=== PATIENT | male | born 1945 | race Caucasian/White ===

== ENCOUNTER 2017-07-19 13:37 | Emergency (ER) | payer MEDICARE ==
[~2017-07-19] VITALS: Ht 177.8 cm; Wt 86.2 kg
--- NOTE | 2017-07-19 14:20 | PHYS DOC ---
Past History Additional Past Medical Histor: benign hypertrophic prostate Smoking: Non-smoker Adult General Chief Complaint Chief Complaint: URINARY RETENTION HPI HPI 71-year-old male patient with history of enlarged prostate complaining of urinary retention since this morning. Patient states he had complete times of small amount of urine output with lower abdominal pressure feeling without nausea and vomiting and diarrhea and constipation and fever and chills. Patient state he supposed to take Flomax but didn't take any and today he borrowed one from his friend about an hour prior to arrival to ER. Review of Systems Review of Systems Constitutional: Denies fever or chills [] Eyes: Denies change in visual acuity, redness, or eye pain [] HENT: Denies nasal congestion or sore throat [] Respiratory: Denies cough or shortness of breath [] Cardiovascular: No additional information not addressed in HPI [] GI: Reports abdominal pain, denies nausea, vomiting, bloody stools or diarrhea [ ] : Denies dysuria or hematuria [] Musculoskeletal: Denies back pain or joint pain [] Integument: Denies rash or skin lesions [] Neurologic: Denies headache, focal weakness or sensory changes [] Endocrine: Denies polyuria or polydipsia [] All other systems were reviewed and found to be within normal limits, except as documented in this note. Allergies Allergies Allergies Coded Allergies Type Severity Reaction Last Updated Verified No Known Drug Allergies 07/19/17 No Physical Exam Physical Exam Constitutional: Well developed, well nourished, mild distress, non-toxic appearance. [] HENT: Normocephalic, atraumatic, bilateral external ears normal, oropharynx moist, no oral exudates, nose normal. [] Eyes: PERRLA, EOMI, conjunctiva normal, no discharge. [] Neck: Normal range of motion, no tenderness, supple, no stridor. [] Cardiovascular:Heart rate regular rhythm, no murmur [] Lungs & Thorax: Bilateral breath sounds clear to auscultation [] Abdomen: Bowel sounds normal, soft, no tenderness, no masses, no pulsatile masses. [] Skin: Warm, dry, no erythema, no rash. [] Back: No tenderness, no CVA tenderness. [] Extremities: No tenderness, no cyanosis, no clubbing, ROM intact, no edema. [] Neurologic: Alert and oriented X 3, normal motor function, normal sensory function, no focal deficits noted. [] Psychologic: Affect normal, judgement normal, mood normal. [] EKG EKG [] Radiology/Procedures Radiology/Procedures [] Course & Med Decision Making Course & Med Decision Making Pertinent Labs reviewed. (See chart for details) Evolution of patient in ER showed 71-year-old male patient with urinary retention since this morning. Patient states that the same problem 4 years ago and had drainage of urine by insertion of Krishna catheter. Bladder scan showed 980 mL of urine inside of the bladder. UA showed infection. Patient had insertion of Krishna catheter with gradual drainage of 1200 mL of nonbloody urine. Patient did not want to go home with Krishna catheter and wanted to go home without catheter. Patient instructed to increase the fluid intake and not taking pops frequently like his usual and follow up with on-call urology. Patient instructed to return to ER if not able to urinate. Dragon Disclaimer Dragon Disclaimer This electronic medical record was generated, in whole or in part, using a voice recognition dictation system. Departure Departure: Impression: Primary Impression: Urinary retention Additional Impression: UTI (urinary tract infection) Disposition: HOME, SELF-CARE (At 1517) Condition: IMPROVED Referrals: PCP,UNKNOWN (PCP) Patient Instructions: Urinary Retention, Acute, Male, Urinary Tract Infection Additional Instructions: Drink plenty of liquids Follow-up with your primary care physician in 3-5 days Return to ER if not getting better Follow-up with on-call urology Dr. Glynn , call [phone] to make an appointment in 2 or 3 days Scripts Ciprofloxacin Hcl (CIPRO) 250 Mg Tablet 1 TAB PO BID, #6 TAB Prov: ANETA REDDY MD 07/19/17 Tamsulosin Hcl (FLOMAX) 0.4 Mg Cap.er.24h 1 CAP PO DAILY, #30 CAP 11 Refills Prov: ANETA REDDY MD 07/19/17 Problem Qualifiers ANETA REDDY MD July 19, 2017 14:20
[2017-07-19 14:21] LABS: BILIRUBIN,URINE NEG (NEG); CLARITY,URINE HAZY; COLOR,URINE YELLOW; GLUCOSE,URINE NEG (NEG); NITRITE,URINE NEG (NEG); UROBILINOGEN,URINE 2 mg/dL (0.2 mg/dL)
[2017-07-19 15:15] VITALS: BP 150/82
[2017-07-19] MEDS ORDERED: TAMS0.4C97 PO (15:19)
[2017-07-19] MEDS ORDERED: CIPR250T30 PO (15:19)
== END 2017-07-19 15:24 | disposition home or self-care (01) ==
LOC: ER 13:37
DX: N39.0 Urinary tract infection, site not specified (principal); R33.9 Retention of urine, unspecified; N40.1 Benign prostatic hyperplasia with lower urinary tract symptoms
CPT/HCPCS: 51701; 81003; 99284-25

== ENCOUNTER 2017-08-07 07:24 | Emergency (ER) | payer MEDICARE ==
[~2017-08-07] VITALS: Ht 177.8 cm; Wt 86.2 kg
[~2017-08-07 07:24] MED LIST: CIPR250T30 PO; TAMS0.4C97 PO
[2017-08-07 07:33] VITALS: BP 154/90
[2017-08-07 08:43] LABS: CLARITY,URINE CLEAR; COLOR,URINE YELLOW; GLUCOSE,URINE NEG (NEG)
--- NOTE | 2017-08-07 08:43 | PHYS DOC ---
Past History Past Medical History: Other Additional Past Medical Histor: benign hypertrophic prostate Past Surgical History: No Surgical History Smoking: Non-smoker Alcohol Use: None Drug Use: None Adult General Chief Complaint Chief Complaint: URINARY RETENTION HPI HPI 71-year-old male presents with inability to urinate. The patient was feeling normal yesterday. He was urinating without difficulty. He started noticing having decreased flow overnight. When he woke up this morning he can tell that his bladder was full and he is unable to urinate. He had this happen about 1 month ago and came into the ED to have a catheter placed. He had a remove the same day. He had no more trouble over the last one month until this morning. He denies fever, chills, or other symptoms of illness. He is scheduled to see urology next week. Review of Systems Review of Systems Constitutional: Denies fever or chills [] Eyes: Denies change in visual acuity, redness, or eye pain [] HENT: Denies nasal congestion or sore throat [] Respiratory: Denies cough or shortness of breath [] Cardiovascular: No additional information not addressed in HPI [] GI: Denies abdominal pain, nausea, vomiting, bloody stools or diarrhea [] : Urinary retention[] Musculoskeletal: Denies back pain or joint pain [] Integument: Denies rash or skin lesions [] Neurologic: Denies headache, focal weakness or sensory changes [] Endocrine: Denies polyuria or polydipsia [] All other systems were reviewed and found to be within normal limits, except as documented in this note. Allergies Allergies Allergies Coded Allergies Type Severity Reaction Last Updated Verified No Known Drug Allergies 07/19/17 No Physical Exam Physical Exam Constitutional: Well developed, well nourished, no acute distress, non-toxic appearance. [] HENT: Normocephalic, atraumatic, bilateral external ears normal, oropharynx moist, no oral exudates, nose normal. [] Eyes: PERRLA, EOMI, conjunctiva normal, no discharge. [] Neck: Normal range of motion, no tenderness, supple, no stridor. [] Cardiovascular:Heart rate regular rhythm, no murmur [] Lungs & Thorax: Bilateral breath sounds clear to auscultation [] Abdomen: Bowel sounds normal, soft, no tenderness, no masses, no pulsatile masses. [] Skin: Warm, dry, no erythema, no rash. [] Back: No tenderness, no CVA tenderness. [] Extremities: No tenderness, no cyanosis, no clubbing, ROM intact, no edema. [] Neurologic: Alert and oriented X 3, normal motor function, normal sensory function, no focal deficits noted. [] Psychologic: Affect normal, judgement normal, mood normal. : external genitalia WNL, circumcised, no erythema or swelling, catheter in place, no blood or discharge, clear urine [] Current Patient Data Vital Signs Vital Signs Date Time Temp Pulse Resp B/P (MAP) Pulse Ox O2 Delivery O2 Flow Rate FiO2 08/07/17 07:33 97.9 81 20 Room Air EKG EKG [] Radiology/Procedures Radiology/Procedures [] Course & Med Decision Making Course & Med Decision Making Pertinent Labs and Imaging studies reviewed. (See chart for details) The patients urine is negative for infection. He had a total of 1200mL of output. The patient is refusing to leave the catheter in and has requested it be removed. This is how his retention was managed in the past and he thinks it will work this time. The modi was removed prior to discharge. [] Dragon Disclaimer Dragon Disclaimer This electronic medical record was generated, in whole or in part, using a voice recognition dictation system. Departure Departure: Referrals: PCP,GIO (PCP) MARY WANG DO Aug 07, 2017 08:43
[2017-08-07 08:44] LABS: BACTERIA,URINE 0 /HPF (0-FEW); BILIRUBIN,URINE NEG (NEG); NITRITE,URINE NEG (NEG); RBC,URINE RARE /HPF (0-2); UROBILINOGEN,URINE 1 mg/dL (0.2 mg/dL); WBC,URINE RARE /HPF (0-4)
== END 2017-08-07 08:58 | disposition home or self-care (01) ==
LOC: ER 07:24
DX: R33.9 Retention of urine, unspecified (principal)
CPT/HCPCS: 51701; 51702; 81001; 99284-25

== ENCOUNTER 2017-08-20 08:41 | Emergency (ER) | payer MEDICARE ==
[~2017-08-20] VITALS: Ht 177.8 cm; Wt 86.2 kg
[2017-08-20 08:49] VITALS: BP 154/90
[2017-08-20 09:15] LABS: BILIRUBIN,URINE NEG (NEG); CLARITY,URINE CLEAR; COLOR,URINE YELLOW; GLUCOSE,URINE NEG (NEG)
[2017-08-20 09:16] LABS: NITRITE,URINE NEG (NEG); UROBILINOGEN,URINE 0.2 mg/dL (0.2 mg/dL)
[2017-08-20] MEDS ORDERED: TAMS0.4C97 PO (09:24)
--- NOTE | 2017-08-20 09:25 | PHYS DOC ---
Past History Past Medical History: Other Additional Past Medical Histor: benign hypertrophic prostate Past Surgical History: No Surgical History Smoking: Non-smoker Alcohol Use: None Drug Use: None Adult General Chief Complaint Chief Complaint: URINARY RETENTION [facility] 71-year-old male patient with history of urinary retention state he was able to urinate like his usual last night since 5:30 this morning was not able to urinate like his usual and had decrease of urine output. Patient complaining of urinary D bleeding and lower abdominal pressure feeling. Patient had 3 episodes of urinary retention during the last 1 months and had appointment with urologist that was postponed to makes week. Patient refused to have Krishna catheter in place for home in his previous ER visit and this time. Review of Systems Review of Systems Constitutional: Denies fever or chills [] Eyes: Denies change in visual acuity, redness, or eye pain [] HENT: Denies nasal congestion or sore throat [] Respiratory: Denies cough or shortness of breath [] Cardiovascular: No additional information not addressed in HPI [] GI: Denies abdominal pain, nausea, vomiting, bloody stools or diarrhea [] : Reports urinary retention, denies dysuria or hematuria [] Musculoskeletal: Denies back pain or joint pain [] Integument: Denies rash or skin lesions [] Neurologic: Denies headache, focal weakness or sensory changes [] Endocrine: Denies polyuria or polydipsia [] All other systems were reviewed and found to be within normal limits, except as documented in this note. Allergies Allergies Allergies Coded Allergies Type Severity Reaction Last Updated Verified No Known Drug Allergies 07/19/17 No Physical Exam Physical Exam Constitutional: Well developed, well nourished, mild distress, non-toxic appearance. [] HENT: Normocephalic, atraumatic Eyes: PERRLA, EOMI, conjunctiva normal, no discharge. [] Neck: Normal range of motion, no tenderness, supple, no stridor. [] Cardiovascular:Heart rate regular rhythm, no murmur [] Lungs & Thorax: Bilateral breath sounds clear to auscultation [] Abdomen: Bowel sounds normal, soft, no tenderness, no masses, no pulsatile masses, suprapubic fullness [] Skin: Warm, dry, no erythema, no rash. [] Back: No tenderness, no CVA tenderness. [] Extremities: No tenderness, no cyanosis, no clubbing, ROM intact, no edema. [] Neurologic: Alert and oriented X 3, normal motor function, normal sensory function, no focal deficits noted. [] Psychologic: Affect normal, judgement normal, mood normal. [] EKG EKG [] Radiology/Procedures Radiology/Procedures [] Course & Med Decision Making Course & Med Decision Making Pertinent Labs reviewed. (See chart for details) Evaluation of patient in ER showed 71-year-old male patient with history of frequent urinary retention presented to ER with another episode of urinary retention. Patient had Krishna catheter placement with more than 800 mL of nonbloody urine drainage. Patient did not want to go home with catheter in place and states she has appointment with his urologist next week. UA did not show infection. Patient instructed to follow-up with his urologist and return to ER if not getting better. [] Dragon Disclaimer Dragon Disclaimer This electronic medical record was generated, in whole or in part, using a voice recognition dictation system. Departure Departure: Impression: Primary Impression: Urinary retention Disposition: HOME, SELF-CARE (At 0922) Condition: IMPROVED Referrals: PCP,NO (PCP) Patient Instructions: Urinary Retention, Acute, Male Additional Instructions: Drink plenty of liquids Follow-up with your urologist as a scheduled Return to ER if not getting better Scripts Tamsulosin Hcl (FLOMAX) 0.4 Mg Cap.er.24h 1 CAP PO DAILY, #30 CAP 11 Refills Prov: ANETA REDDY MD 08/20/17 ANETA REDDY MD Aug 20, 2017 09:25
== END 2017-08-20 09:37 | disposition home or self-care (01) ==
LOC: ER 08:41
DX: R33.9 Retention of urine, unspecified (principal)
CPT/HCPCS: 51701; 81003; 99283-25

== ENCOUNTER 2017-09-10 06:54 | Emergency (ER) | payer MEDICARE, OTHER ==
[~2017-09-10] VITALS: Ht 177.8 cm; Wt 86.2 kg
[2017-09-10 07:26] VITALS: BP 162/77
[2017-09-10 08:08] LABS: BACTERIA,URINE 0 /HPF (0-FEW); BILIRUBIN,URINE NEG (NEG); CLARITY,URINE HAZY; COLOR,URINE YELLOW; GLUCOSE,URINE NEG (NEG); NITRITE,URINE NEG (NEG); SQUAMOUS EPITHELIAL CELL,UR OCC /LPF; UROBILINOGEN,URINE 0.2 mg/dL (0.2 mg/dL); WBC,URINE RARE /HPF (0-4)
--- NOTE | 2017-09-10 11:19 | ED.ADGEN ---
Past History Past Medical History: Other Additional Past Medical Histor: benign hypertrophic prostate Past Surgical History: No Surgical History Smoking: Non-smoker Alcohol Use: None Drug Use: None Adult General Chief Complaint Chief Complaint Acute urinary retention HPI HPI Patient is a 71-year-old male with history of benign prostate hypertrophy who presents with acute urinary retention. Patient's been seen in emergency department 3 times for the same in the past month. He is follow-up with the urologist and started on Flomax which he is taking. Reports diffuse lower abdominal pain with last urine output approximate 7 hours prior to ED arrival. Symptoms are similar prior episodes. No flank pain, nausea vomiting, fever chills or sweats. No other acute symptoms or complaints[] Review of Systems Review of Systems ROS as per HPI] All other systems were reviewed and found to be within normal limits, except as documented in this note. Allergies Allergies Allergies Coded Allergies Type Severity Reaction Last Updated Verified No Known Drug Allergies 07/19/17 No Physical Exam Physical Exam Constitutional: Well developed, well nourished, no acute distress, non-toxic appearance. [] HENT: Normocephalic, atraumatic, bilateral external ears normal, oropharynx moist, nose normal. [] Eyes: PERRLA, EOMI, conjunctiva normal. [] Neck: Normal range of motion. [] Lungs & Thorax: Bilateral breath sounds clear to auscultation [] Abdomen: Bowel sounds normal, soft, diffuse lower abdominal pain. [] Skin: Warm, dry, no erythema. [] Extremities: No tenderness. [] Neurologic: Alert and oriented X 3, normal motor function, normal sensory function, no focal deficits noted. [] Psychologic: Affect normal, judgement normal, mood normal. [] Current Patient Data Vital Signs Vital Signs Date Time Temp Pulse Resp B/P (MAP) Pulse Ox O2 Delivery O2 Flow Rate FiO2 09/10/17 07:26 98.1 84 18 98 Room Air Lab Results Laboratory Tests Test 09/10/17 07:25 Urine Collection Type Unknown Urine Color Yellow Urine Clarity Hazy Urine pH 5.5 Urine Specific Raymond 1.010 Urine Protein Neg (NEG-TRACE) Urine Glucose (UA) Neg mg/dL (NEG) Urine Ketones (Stick) Neg mg/dL (NEG) Urine Blood Large (NEG) Urine Nitrite Neg (NEG) Urine Bilirubin Neg (NEG) Urine Urobilinogen Dipstick 0.2 mg/dL (0.2 mg/dL) Urine Leukocyte Esterase Neg (NEG) Urine RBC 11-20 /HPF (0-2) Urine WBC Rare /HPF (0-4) Urine Squamous Epithelial Cells Occ /LPF Urine Bacteria 0 /HPF (0-FEW) EKG EKG [] Radiology/Procedures Radiology/Procedures [] Course & Med Decision Making Course & Med Decision Making Pertinent Labs and Imaging studies reviewed. (See chart for details) [ requesting straight catheter declines Krishna catheter placement. Recommend increasing Flomax to twice daily. Patient instructed not to take Flomax if he feels lightheaded or dizzy.] Final Impression Final Impression [1. Acute urinary retention] Dragon Disclaimer Dragon Disclaimer This electronic medical record was generated, in whole or in part, using a voice recognition dictation system. MARY BARNES DO Sep 10, 2017 11:19
== END 2017-09-10 07:32 | disposition home or self-care (01) ==
LOC: ER 06:54
DX: R33.8 Other retention of urine (principal); N40.0 Benign prostatic hyperplasia without lower urinary tract symptoms
CPT/HCPCS: 81001; 99283

== ENCOUNTER 2019-09-05 03:33 | Emergency (ER) | payer MEDICARE, OTHER ==
[~2019-09-05] VITALS: Ht 177.8 cm; Wt 90.0 kg
[2019-09-05 03:33] VITALS: BP 137/58
--- NOTE | 2019-09-05 03:41 | PHYS DOC ---
Past History Past Medical History: Other Additional Past Medical Histor: benign hypertrophic prostate, Urinary retention Past Surgical History: No Surgical History Smoking: Non-smoker Alcohol Use: None Drug Use: None General Adult EDM: Chief Complaint: Urination problem HPI: HPI: 73-year-old male presents with report of difficulty with urination. Reports history of urinary retention secondary to BPH. Patient reports last able to urinate at midnight. Patient reports taking a Flomax without interval improvement. Denies fever or chills. Denies trauma. Review of Systems: Review of Systems: Constitutional: Denies fever or chills Eyes: Denies redness or eye pain HENT: Denies nasal congestion or sore throat Respiratory: Denies cough or shortness of breath Cardiovascular: Denies chest pain or palpitations GI: Denies abdominal pain, nausea, or vomiting : Reports dysuria and urgency Musculoskeletal: Denies back pain or joint pain Integument: Denies rash or skin lesions Neurologic: Denies headache, focal weakness or sensory changes Complete systems were reviewed and found to be within normal limits, except as documented in this note. Allergies: Allergies: Allergies Coded Allergies Type Severity Reaction Last Updated Verified No Known Drug Allergies 07/19/17 No Physical Exam: PE: Constitutional: Well developed, well nourished, no acute distress, non-toxic appearance HENT: Normocephalic, atraumatic Eyes: Conjunctiva normal, no discharge Neck: Normal range of motion, no tenderness, supple Lungs & Thorax: No respiratory distress, equal chest rise and fall Abdomen: Soft, suprapubic tenderness Skin: Warm, dry, no erythema, no rash Back: No tenderness, no CVA tenderness Extremities: No tenderness, ROM intact, no edema Neurologic: Alert and oriented X 3, no focal deficits noted Psychologic: Affect normal, judgment normal EKG: EKG: [] Radiology/Procedures: Radiology/Procedures: [] Course & Med Decision Making: Course & Med Decision Making Pertinent Lab studies reviewed. (See chart for details) Elderly patient presents with report of difficulty with urination consistent for urinary retention. Krishna cath placed with interval improvement. UA without signs of infection. Patient adamant to not leave with the Krishna catheter. Patient advised there is strong possibility he may return with similar symptoms and may require further catheterizations. Patient acknowledges understanding and agreement. Patient stable for discharge with outpatient follow-up with PCP/urologist. Discussed findings and plan with patient, who acknowledges understanding and agreement. Catia Disclaimer: Catia Disclaimer: This electronic medical record was generated, in whole or in part, using a voice recognition dictation system. Departure Departure: Impression: Primary Impression: Urinary retention Disposition: 01 HOME/RESIDENCE PRIOR TO ADM Condition: STABLE Referrals: PCP,NO (PCP) Patient Instructions: Urinary Retention, Acute, Male, [id number] Additional Instructions: Follow up closely with your doctor and/or Urologist for further evaluation. You have elected to not have a Krishna catheter remain. There is a possibility that your symptoms may return and you may need to present to the Emergency Department again to have Krishna catheter placed. Justification of Admission: Justification of Admission: Justification of Admission Dx: N/A JEREMY BERMEO DO Sep 05, 2019 03:41
[2019-09-05 04:18] LABS: BACTERIA,URINE 0 /HPF (0-FEW); BILIRUBIN,URINE NEG (NEG); CLARITY,URINE CLEAR; COLOR,URINE YELLOW; GLUCOSE,URINE NEG (NEG); NITRITE,URINE NEG (NEG); UROBILINOGEN,URINE 0.2 mg/dL (0.2 mg/dL); WBC,URINE 0 /HPF (0-4)
== END 2019-09-05 04:25 | disposition home or self-care (01) ==
LOC: ER 03:33
DX: N40.1 Benign prostatic hyperplasia with lower urinary tract symptoms (principal); R33.8 Other retention of urine
CPT/HCPCS: 51701; 51702; 81001; 99283; 99284

== ENCOUNTER 2019-09-25 11:23 | Emergency (ER) | payer MEDICARE ==
[~2019-09-25] VITALS: Ht 177.8 cm; Wt 90.0 kg
[2019-09-25 11:46] VITALS: BP 137/58
--- NOTE | 2019-09-25 11:51 | PHYS DOC ---
Past History Past Medical History: Other Additional Past Medical Histor: benign hypertrophic prostate, Urinary retention Past Surgical History: No Surgical History Smoking: Non-smoker Alcohol Use: None Drug Use: None General Adult EDM: Chief Complaint: PAIN ON URINATION HPI: HPI: Patient is a 73-year-old male with a history of BPH and multiple episodes of urinary retention over the years presents with 12-hour history of inability to urinate. He states he is now having some lower abdominal discomfort. He denies any fever chills or sweats. He denies back pain. He denies flank pain. He denies any gross hematuria. Review of Systems: Review of Systems: Constitutional: Denies fever or chills Eyes: Denies change in visual acuity HENT: Denies nasal congestion or sore throat Respiratory: Denies cough or shortness of breath Cardiovascular: Denies chest pain or edema GI: Denies abdominal pain, nausea, vomiting, bloody stools or diarrhea : Per HPI Musculoskeletal: Denies back pain or joint pain Integument: Denies rash Neurologic: Denies headache, focal weakness or sensory changes Endocrine: Denies polyuria or polydipsia Lymphatic: Denies swollen glands Psychiatric: Denies depression or anxiety Heart Score: Risk Factors: Risk Factors: DM, Current or recent (<one month) smoker, HTN, HLP, family history of CAD, obesity. Risk Scores: Score 0 - 3: 2.5% MACE over next 6 weeks - Discharge Home Score 4 - 6: 20.3% MACE over next 6 weeks - Admit for Clinical Observation Score 7 - 10: 72.7% MACE over next 6 weeks - Early Invasive Strategies Allergies: Allergies: Allergies Coded Allergies Type Severity Reaction Last Updated Verified No Known Drug Allergies 07/19/17 No Physical Exam: PE: Constitutional: Well developed, well nourished, mild to moderate distress, non- toxic appearance. [] HENT: Normocephalic, atraumatic, bilateral external ears normal, oropharynx moist, no oral exudates, nose normal. [] Eyes: PERRLA, EOMI, conjunctiva normal, no discharge. [] Neck: Normal range of motion, no tenderness, supple, no stridor. [] Cardiovascular:Heart rate regular rhythm, no murmur [] Lungs & Thorax: Bilateral breath sounds clear to auscultation [] Abdomen: Distended bladder up to midway between symphysis pubis and umbilicus. [] Skin: Warm, dry, no erythema, no rash. [] Back: No tenderness, no CVA tenderness. [] Extremities: No tenderness, no cyanosis, no clubbing, ROM intact, no edema. [] Neurologic: Alert and oriented X 3, normal motor function, normal sensory function, no focal deficits noted. [] Psychologic: Affect normal, judgement normal, mood normal. [] EKG: EKG: [] Radiology/Procedures: Radiology/Procedures: [] Course & Med Decision Making: Course & Med Decision Making Pertinent Labs and Imaging studies reviewed. (See chart for details) [ED course: Evaluation reveals a 73-year-old male with distended bladder. Krishna catheter was placed and had 500 cc of clear yellow urine return immediately. This did relieve the patient's symptoms. I spoke with the patient about leaving the catheter in and given him a leg bag which would help his bladder heal however the patient refused he states this happens twice a year he gets a catheter to drain the bladder they take it out and he is better. He has an appointment with the urologist in 1 week. Have encouraged him to follow up.] Catia Disclaimer: Dragon Disclaimer: This electronic medical record was generated, in whole or in part, using a voice recognition dictation system. Departure Departure: Impression: Primary Impression: Acute urinary retention Disposition: 01 HOME/RESIDENCE PRIOR TO ADM Condition: IMPROVED Referrals: PCP,GIO (PCP) Patient Instructions: Urinary Retention, Acute, Male Additional Instructions: Return to the emergency department if your symptoms recur. As we discussed, it is very important for you to keep your follow-up appointment with her urologist. Scripts Levofloxacin (LEVAQUIN) 500 Mg Tablet 500 MG PO QD for UTI, #5 TAB Prov: STANLEY LEW DO 09/25/19 Justification of Admission: Justification of Admission: Justification of Admission Dx: No STANLEY LEW DO Sep 25, 2019 11:51
[2019-09-25 12:24] LABS: BACTERIA,URINE MANY /HPF (0-FEW); BILIRUBIN,URINE NEG (NEG); CLARITY,URINE CLEAR; COLOR,URINE YELLOW; GLUCOSE,URINE NEG (NEG); NITRITE,URINE POS (NEG); RBC,URINE 0 /HPF (0-2); UROBILINOGEN,URINE 0.2 mg/dL (0.2 mg/dL); WBC,URINE OCC /HPF (0-4)
[2019-09-25] MEDS ORDERED: LEVO500T59 PO (18:08)
== END 2019-09-25 12:00 | disposition home or self-care (01) ==
LOC: ER 11:23
DX: N40.1 Benign prostatic hyperplasia with lower urinary tract symptoms (principal); R33.8 Other retention of urine
CPT/HCPCS: 51702; 81001; 87086; 99284

== ENCOUNTER 2020-04-06 06:33 | Emergency (ER) | payer MEDICARE ==
[~2020-04-06] VITALS: Ht 177.8 cm; Wt 90.0 kg
[~2020-04-06 06:33] MED LIST changes: +LEVO500T59 PO
--- NOTE | 2020-04-06 07:13 | PHYS DOC ---
Past History Past Medical History: Other Additional Past Medical Histor: benign prostate hypertrophy, Urinary retention Past Surgical History: No Surgical History Smoking: Non-smoker Alcohol Use: None Drug Use: None Adult General Chief Complaint Chief Complaint: URINARY RETENTION [facility] HPI Patient is a 74-year-old male who presents to the emergency room complaining of urinary retention. Patient states this happens to him twice a year. This started about 12 hours ago. He states he typically gets a straight cath and has his bladder drained and then it is better. He follows with a urologist twice a year. He saw him couple months ago. He has some lower abdominal discomfort. He denies any other pain. Review of Systems Review of Systems Complete ROS is negative unless otherwise documented in HPI Allergies Allergies Allergies Coded Allergies Type Severity Reaction Last Updated Verified No Known Drug Allergies 04/06/20 No Physical Exam Physical Exam General: Awake, alert, NAD. Well Nourished, well hydrated. Cooperative HEENT: Atraumatic, EOMI, PERRL, airway patent, moist oral mucosa Neck: Supple, trachea midline Respiratory: CTA bilaterally, normal effort, no wheezing/crackles CV: RRR, no murmur, cap refill <2 GI: Soft, mild distention with mild lower abdominal tenderness., no masses MSK: No obvious deformities Skin: Warm, dry, intact Neuro: A&O x3, speech NL, sensory and motor grossly intact, no focal deficits Psych: Normal affect, normal mood, not suicidal or homicidal EKG EKG [] Radiology/Procedures Radiology/Procedures [] Heart Score Risk Factors: Risk Factors: DM, Current or recent (<one month) smoker, HTN, HLP, family history of CAD, obesity. Risk Scores: Risk Factors: DM, Current or recent (<one month) smoker, HTN, HLP, family history of CAD, obesity. Course & Med Decision Making Course & Med Decision Making Pertinent Labs and Imaging studies reviewed. (See chart for details) Patient is 74-year-old male who presents to the emergency room complaining of urinary retention. A Krishna was placed and we drained 600 out of his bladder. I did discuss with him leaving an indwelling catheter with a leg bag and following up with urology. Patient declines. He states that once he gets his bladder drained it does not happen again. Krishna was removed. UA does not show infection. Patient's test results and vitals while in the ED were fully reviewed and discussed with the patient. Patient is stable and at this time does not need admission to the hospital. We have discussed strict return precautions and the importance of following up with their Primary Care Physician. Patient stated understanding and was given an opportunity to ask any questions. Patient is in agreement with plan. Dragon Disclaimer Dragon Disclaimer This electronic medical record was generated, in whole or in part, using a voice recognition dictation system. Departure Departure: Impression: Primary Impression: Urinary retention Disposition: 01 DC HOME SELF CARE/HOMELESS Condition: STABLE Referrals: PCP,NO (PCP) Patient Instructions: Urinary Retention, Acute, Male STEPHANI SOTELO MD Apr 06, 2020 07:13
[2020-04-06 07:20] VITALS: BP 124/48
[2020-04-06 07:24] LABS: BACTERIA,URINE MANY /HPF (0-FEW); BILIRUBIN,URINE NEG (NEG); CLARITY,URINE HAZY; COLOR,URINE YELLOW; GLUCOSE,URINE NEG (NEG); NITRITE,URINE NEG (NEG); RBC,URINE 0 /HPF (0-2); WBC,URINE 0 /HPF (0-4)
[2020-04-06] MEDS ORDERED: LEVO500T8 PO (16:10)
== END 2020-04-06 07:20 | disposition home or self-care (01) ==
LOC: ER 06:33
DX: R33.9 Retention of urine, unspecified (principal)
CPT/HCPCS: 51702; 81001; 87077; 87086; 99284

== ENCOUNTER 2020-04-06 15:11 | Emergency (ER) | payer MEDICARE ==
[~2020-04-06] VITALS: Ht 177.8 cm; Wt 90.0 kg
[2020-04-06 15:11] VITALS: BP 160/81
[2020-04-06] MEDS ORDERED: LEVO500T8 PO (16:10)
--- NOTE | 2020-04-06 16:11 | PHYS DOC ---
Past History Past Medical History: Other Additional Past Medical Histor: benign prostate hypertrophy, Urinary retention; growth on rt eye; psoriasis Past Surgical History: No Surgical History Smoking: Non-smoker Alcohol Use: None Drug Use: None Adult General Chief Complaint Chief Complaint: URINARY RETENTION [facility] Patient is 74-year-old male presents to the emergency room with urinary retention. Patient was in the emergency room earlier today with the same issue. At that time a Krishna was placed and removed per the patient's request. He states he has not been able to urinate at home since that time. Review of Systems Review of Systems Complete ROS is negative unless otherwise documented in HPI Allergies Allergies Allergies Coded Allergies Type Severity Reaction Last Updated Verified No Known Drug Allergies 04/06/20 No Physical Exam Physical Exam General: Awake, alert, NAD. Well Nourished, well hydrated. Cooperative HEENT: Atraumatic, EOMI, PERRL, airway patent, moist oral mucosa Neck: Supple, trachea midline Respiratory: CTA bilaterally, normal effort, no wheezing/crackles CV: RRR, no murmur, cap refill <2 GI: Soft, nondistended, nontender, no masses MSK: No obvious deformities Skin: Warm, dry, intact Neuro: A&O x3, speech NL, sensory and motor grossly intact, no focal deficits Psych: Normal affect, normal mood, not suicidal or homicidal Current Patient Data Vital Signs Vital Signs Date Time Temp Pulse Resp B/P (MAP) Pulse Ox O2 Delivery O2 Flow Rate FiO2 04/06/20 15:11 112 160/81 (107) 96 04/06/20 15:11 20 Room Air EKG EKG [] Radiology/Procedures Radiology/Procedures [] Heart Score Risk Factors: Risk Factors: DM, Current or recent (<one month) smoker, HTN, HLP, family history of CAD, obesity. Risk Scores: Risk Factors: DM, Current or recent (<one month) smoker, HTN, HLP, family history of CAD, obesity. Course & Med Decision Making Course & Med Decision Making Pertinent Labs and Imaging studies reviewed. (See chart for details) Patient is 74-year-old male who presents to the emergency room complaining of urinary retention. Krishna was placed and 600 was drained. I discussed with the patient leaving a Krishna in. Patient continues to decline. He did have some bacteria in his urine previously which may be related to prostatitis. We will treat him with Levaquin. Patient states he believes he can get in with his urologist tomorrow. I have discussed with him that if he has further issues he should return to the emergency room. Patient's test results and vitals while in the ED were fully reviewed and discussed with the patient. Patient is stable and at this time does not need admission to the hospital. We have discussed strict return precautions and the importance of following up with their Primary Care Physician. Patient stated understanding and was given an opportunity to ask any questions. Patient is in agreement with plan. Dragon Disclaimer Dragon Disclaimer This electronic medical record was generated, in whole or in part, using a voice recognition dictation system. Departure Departure: Impression: Primary Impression: Urinary retention Disposition: 01 DC HOME SELF CARE/HOMELESS Condition: STABLE Referrals: PCP,NO (PCP) Patient Instructions: Urinary Retention, Acute, Male Scripts Levofloxacin (LEVOFLOXACIN) 500 Mg Tablet 1 TAB PO DAILY for prostatitis, #14 TAB Prov: STEPHANI SOTELO MD 04/06/20 STEPHANI SOTELO MD Apr 06, 2020 16:11
[2020-04-06] MEDS ORDERED: levoFLOXacin 500 MG TABLET PO ONE ×2 (16:15→16:30)
== END 2020-04-06 16:14 | disposition home or self-care (01) ==
LOC: ER 15:11
DX: R33.9 Retention of urine, unspecified (principal)
CPT/HCPCS: 51702; 99284

== ENCOUNTER 2020-08-11 07:50 | Emergency (ER) | payer MEDICARE ==
[~2020-08-11] VITALS: Ht 177.8 cm; Wt 97.0 kg
[~2020-08-11 07:50] MED LIST changes: +LEVO500T8 PO
--- NOTE | 2020-08-11 08:17 | PHYS DOC ---
Past History Past Medical History: Other Additional Past Medical Histor: benign prostate hypertrophy, Urinary retention; growth on rt eye; psoriasis Past Surgical History: No Surgical History Smoking: Non-smoker Alcohol Use: None Drug Use: None General Adult EDM: Chief Complaint: PAIN ON URINATION HPI: HPI: 74-year-old male presents with urinary retention. The patient has urinary retention requiring catheterization once or twice a year. He was having decreased output yesterday and then has had no output since 1 AM. He could tell this was can be 1 of those episodes so he came into the ER to have his bladder drained by catheter. He typically has the catheter put in, gets drained, and then has it removed. He follows with his urologist. He has no other complaints this time. Denies fever or chills. Review of Systems: Review of Systems: Constitutional: Denies fever or chills Eyes: Denies change in visual acuity HENT: Denies nasal congestion or sore throat Respiratory: Denies cough or shortness of breath Cardiovascular: Denies chest pain or edema GI: Denies abdominal pain, nausea, vomiting, bloody stools or diarrhea : Urinary retention Musculoskeletal: Denies back pain or joint pain Integument: Denies rash Neurologic: Denies headache, focal weakness or sensory changes Endocrine: Denies polyuria or polydipsia Lymphatic: Denies swollen glands Psychiatric: Denies depression or anxiety Allergies: Allergies: Allergies Coded Allergies Type Severity Reaction Last Updated Verified No Known Drug Allergies 04/06/20 No Physical Exam: PE: Constitutional: Well developed, well nourished, no acute distress, non-toxic appearance. [] HENT: Normocephalic, atraumatic, bilateral external ears normal, oropharynx moist, no oral exudates, nose normal. [] Eyes: PERRLA, EOMI, conjunctiva normal, no discharge. [] Neck: Normal range of motion, no tenderness, supple, no stridor. [] Cardiovascular: Heart rate regular rhythm, no murmur [] Lungs & Thorax: Bilateral breath sounds clear to auscultation [] Abdomen: Bowel sounds normal, soft, no tenderness, no masses, no pulsatile masses. [] Skin: Warm, dry, no erythema, no rash. [] Back: No tenderness, no CVA tenderness. [] Extremities: No tenderness, no cyanosis, no clubbing, ROM intact, no edema. [] Neurologic: Alert and oriented X 3, normal motor function, normal sensory function, no focal deficits noted. [] Psychologic: Affect normal, judgement normal, mood normal. : Circumcised, descended testicles bilaterally, circumcised, no lesions or rash. Current Patient Data: Vital Signs: Vital Signs Date Time Temp Pulse Resp B/P (MAP) Pulse Ox O2 Delivery O2 Flow Rate FiO2 08/11/20 07:55 97.6 97 18 141/81 (101) 95 EKG: EKG: [] Radiology/Procedures: Radiology/Procedures: [] Heart Score: C/O Chest Pain: N/A Risk Factors: Risk Factors: DM, Current or recent (<one month) smoker, HTN, HLP, family history of CAD, obesity. Risk Scores: Score 0 - 3: 2.5% MACE over next 6 weeks - Discharge Home Score 4 - 6: 20.3% MACE over next 6 weeks - Admit for Clinical Observation Score 7 - 10: 72.7% MACE over next 6 weeks - Early Invasive Strategies Course & Med Decision Making: Course & Med Decision Making Pertinent Labs and Imaging studies reviewed. (See chart for details) The patient had a catheter placed. With 700 mils out. It was removed without complication. The patient's urinalysis was nitrite positive. I will treat him for UTI with Keflex for 7 days. Patient is stable for discharge at this time. [] Dragon Disclaimer: Dragon Disclaimer: This electronic medical record was generated, in whole or in part, using a voice recognition dictation system. Departure Departure: Impression: Primary Impression: Urinary retention Additional Impression: UTI (urinary tract infection) Qualified Codes: N30.01 - Acute cystitis with hematuria Disposition: HOME / SELF CARE / HOMELESS Condition: IMPROVED Referrals: PCP,NO (PCP) Patient Instructions: Urinary Retention, Acute, Male, [id number], Urinary Tract Infection, [id number] Scripts Cephalexin (CEPHALEXIN) 500 Mg Tablet 1 TAB PO TID for UTI for 7 Days, #21 TAB Prov: MARY WANG DO 08/11/20 MARY WANG DO Aug 11, 2020 08:17
[2020-08-11 08:23] LABS: BILIRUBIN,URINE NEG (NEG); CLARITY,URINE HAZY; COLOR,URINE YELLOW; GLUCOSE,URINE NEG (NEG); NITRITE,URINE POS (NEG)
[2020-08-11 08:27] LABS: BACTERIA,URINE FEW /HPF (0-FEW); RBC,URINE OCC /HPF (0-2); WBC,URINE OCC /HPF (0-4)
[2020-08-11] MEDS ORDERED: CEPH500T PO (08:43)
[2020-08-11 08:50] VITALS: BP 144/72
== END 2020-08-11 08:51 | disposition home or self-care (01) ==
LOC: ER 07:50
DX: N39.0 Urinary tract infection, site not specified (principal)
CPT/HCPCS: 81001; 87077; 87086; 99283

== ENCOUNTER 2020-11-07 07:09 | Emergency (ER) | payer MEDICARE ==
[~2020-11-07] VITALS: Ht 177.8 cm; Wt 93.0 kg
[~2020-11-07 07:09] MED LIST changes: +CEPH500T PO
--- NOTE | 2020-11-07 07:32 | PHYS DOC ---
Past History Past Medical History: Other Additional Past Medical Histor: benign prostate hypertrophy, Urinary retention; growth on rt eye; psoriasis Past Surgical History: No Surgical History Smoking: Non-smoker Alcohol Use: None Drug Use: None General Adult EDM: Chief Complaint: URINARY RETENTION HPI: HPI: 75-year-old male presents with urinary retention. The patient tells me he gets this once or twice a year for no obvious reason. Overnight last night, he noticed that he was having increasing difficulty urinating. By 2:30 AM he was unable to urinate at all. The patient stays well-hydrated. He has a urologist. The patient says they have not found any significant cause for his intermittent retention. He does comes in for catheterization he needs it. He always has the catheter removed prior to discharge. Patient denies any other symptoms at this time. Denies fever or chills. Review of Systems: Review of Systems: Constitutional: Denies fever or chills Eyes: Denies change in visual acuity HENT: Denies nasal congestion or sore throat Respiratory: Denies cough or shortness of breath Cardiovascular: Denies chest pain or edema GI: Denies abdominal pain, nausea, vomiting, bloody stools or diarrhea : Urinary retention Musculoskeletal: Denies back pain or joint pain Integument: Denies rash Neurologic: Denies headache, focal weakness or sensory changes Endocrine: Denies polyuria or polydipsia Lymphatic: Denies swollen glands Psychiatric: Denies depression or anxiety Allergies: Allergies: Allergies Coded Allergies Type Severity Reaction Last Updated Verified No Known Drug Allergies 04/06/20 No Physical Exam: PE: Constitutional: Well developed, well nourished, no acute distress, non-toxic appearance. [] HENT: Normocephalic, atraumatic, bilateral external ears normal, oropharynx moist, no oral exudates, nose normal. [] Eyes: PERRLA, EOMI, conjunctiva normal, no discharge. [] Neck: Normal range of motion, no tenderness, supple, no stridor. [] Cardiovascular: Heart rate regular rhythm, no murmur [] Lungs & Thorax: Bilateral breath sounds clear to auscultation [] Abdomen: Bowel sounds normal, soft, no tenderness after catheter insertion, no masses, no pulsatile masses. [] Skin: Warm, dry, no erythema, no rash. [] Back: No tenderness, no CVA tenderness. [] Extremities: No tenderness, no cyanosis, no clubbing, ROM intact, no edema. [] Neurologic: Alert and oriented X 3, normal motor function, normal sensory function, no focal deficits noted. [] Psychologic: Affect normal, judgement normal, mood normal. : Circumcised, no rash or lesions. [] EKG: EKG: [] Radiology/Procedures: Radiology/Procedures: [] Heart Score: C/O Chest Pain: N/A Risk Factors: Risk Factors: DM, Current or recent (<one month) smoker, HTN, HLP, family history of CAD, obesity. Risk Scores: Score 0 - 3: 2.5% MACE over next 6 weeks - Discharge Home Score 4 - 6: 20.3% MACE over next 6 weeks - Admit for Clinical Observation Score 7 - 10: 72.7% MACE over next 6 weeks - Early Invasive Strategies Course & Med Decision Making: Course & Med Decision Making Pertinent Labs and Imaging studies reviewed. (See chart for details) We did place a Krishna catheter in the patient. He had about 800 of initial output. The patient's urinalysis is negative for nitrate and leukocyte esterase. There is some bacteria in the urine. This is likely from the procedure. I do not believe he has a urinary tract infection. We will remove his catheter. He is stable for discharge at this time. [] Catia Disclaimer: Catia Disclaimer: This electronic medical record was generated, in whole or in part, using a voice recognition dictation system. Departure Departure: Impression: Primary Impression: Urinary retention Disposition: HOME / SELF CARE / HOMELESS Condition: IMPROVED Referrals: PCPGIO (PCP) Patient Instructions: Urinary Retention, Acute, Male, [id number] MARY WANG DO Nov 07, 2020 07:31
[2020-11-07 08:08] LABS: BILIRUBIN,URINE NEG (NEG); CLARITY,URINE CLEAR; COLOR,URINE YELLOW; GLUCOSE,URINE NEG (NEG); NITRITE,URINE NEG (NEG)
[2020-11-07 08:09] LABS: BACTERIA,URINE MANY /HPF (0-FEW); RBC,URINE 0 /HPF (0-2); SQUAMOUS EPITHELIAL CELL,UR FEW /LPF
[2020-11-07 08:40] VITALS: BP 125/62
== END 2020-11-07 08:40 | disposition home or self-care (01) ==
LOC: ER 07:09
DX: R33.9 Retention of urine, unspecified (principal)
CPT/HCPCS: 51702; 81001; 87086; 99284-25